=== PATIENT | male | born 2000 | race Caucasian/White ===

== ENCOUNTER 2021-10-12 23:38 | Day surgery (SDC) | payer OTHER ==
[~2021-10-12] VITALS: Ht 177.8 cm; Wt 75.0 kg
[2021-10-13 01:14] LABS: BASO # 0.1 10^3/uL (0.0-0.2); BASO % 0.3 % (0.0-1.0); EOS # 0.5 10^3/uL (0.0-0.5); EOS % 2.8 % (0.0-3.0); HEMATOCRIT 41.9 % (42.0-52.0); HEMOGLOBIN 14.2 g/dl (13.5-17.5); LYMPH # 2.7 10^3/uL (1.5-5.0); LYMPH % 14.8 % (24.0-44.0); MEAN CORPUSCULAR HGB CONC 33.9 g/dl (32.0-36.5); MEAN CORPUSCULAR VOLUME 88.6 fl (80.0-96.0); MONO # 1.1 10^3/uL (0.0-0.8); MONO % 5.9 % (2.0-8.0); NEUTROPHILS % 75.9 % (36.0-66.0); PLATELET COUNT, AUTOMATED 290 10^3/uL (150-450); RED BLOOD COUNT 4.73 10^6/uL (4.30-6.10); WHITE BLOOD COUNT 18.4 10^3/uL (4.0-10.0)
[2021-10-13 01:35] LABS: ERYTHROCYTE SEDIMENTATION RATE 13 mm/hr (0-15)
[2021-10-13 01:39] LABS: ALT/SGPT 27 U/L (12-78); BILIRUBIN,DIRECT < 0.1 MG/DL (0.0-0.2); BILIRUBIN,TOTAL 0.5 MG/DL (0.2-1.0); BLOOD UREA NITROGEN 11 MG/DL (7-18); C REACTIVE PROTEIN QUANTITATIV 1.66 MG/DL (0.00-0.30); CALCIUM LEVEL 8.9 MG/DL (8.5-10.1); CARBON DIOXIDE LEVEL 26 MEQ/L (21-32); CHLORIDE LEVEL 107 MEQ/L (98-107); CREATININE FOR GFR 0.98 MG/DL (0.70-1.30); GLOMERULAR FILTRATION RATE > 60.0 (>60); GLUCOSE, FASTING 81 MG/DL (70-100); LIPASE 57 U/L (73-393); POTASSIUM SERUM 5.7 MEQ/L (3.5-5.1); SODIUM LEVEL 137 MEQ/L (136-145); TOTAL PROTEIN 7.7 GM/DL (6.4-8.2)
[2021-10-13] MEDS ORDERED: ISOVUE-370 76% 100ML VIAL As Ordered ONE (02:03)
[2021-10-13] MEDS ORDERED: NS 1,000 ML IV ONE (02:50)
[2021-10-13] MEDS ORDERED: PIPERACILLIN/TAZOBACTAM SOD 4.5 GM in D5W MINI-BAG PLUS 50 ML IV ONE (02:50)
[2021-10-13] MEDS ORDERED: MORPHINE 4 MG/ML 1ML VIAL/SYRINGE IV ONE (02:50)
[2021-10-13 02:52] LABS: BLOOD UREA NITROGEN 10 MG/DL (7-18); CALCIUM LEVEL 8.9 MG/DL (8.5-10.1); CARBON DIOXIDE LEVEL 30 MEQ/L (21-32); CHLORIDE LEVEL 106 MEQ/L (98-107); CREATININE FOR GFR 0.84 MG/DL (0.70-1.30); GLOMERULAR FILTRATION RATE > 60.0 (>60); GLUCOSE, FASTING 78 MG/DL (70-100); POTASSIUM SERUM 3.6 MEQ/L (3.5-5.1); SODIUM LEVEL 140 MEQ/L (136-145)
[2021-10-13] MEDS ORDERED: LIDOCAINE W/EPINEPHRINE 1% 20ML VIAL As Ordered ONE (05:04)
[2021-10-13] MEDS ORDERED: LIDOCAINE 2% 100MG/5ML SDV (FOR ANES.) As Ordered ONE (05:06)
[2021-10-13] MEDS ORDERED: fentaNYL 250 MCG/5 ML INJECTION As Ordered ONE (05:06)
[2021-10-13] MEDS ORDERED: ROCURONIUM BROMIDE 50 MG/5 ML VIAL As Ordered ONE (05:06)
[2021-10-13] MEDS ORDERED: propofoL 200 MG/20 ML VIAL As Ordered ONE ×2 (05:06→05:07)
[2021-10-13] MEDS ORDERED: MIDAZOLAM INJ 2MG/2ML VIAL (J2250 PER 1MG) As Ordered ONE (05:07)
[2021-10-13] MEDS ORDERED: ONDANSETRON 4MG/2ML VIAL IV PRN ×2 (05:25→06:30)
[2021-10-13] MEDS ORDERED: KETOROLAC 30 MG/ML 1ML VIAL IV PRN (05:25)
[2021-10-13] MEDS ORDERED: NS 1,000 ML IV SCH (05:25)
[2021-10-13] MEDS ORDERED: NORCO, ANEXSIA 5/325MG TABLET (HYDROcodone/ACETAMINOPHEN) PO PRN (05:25)
[2021-10-13] MEDS ORDERED: dexameTHASONE 4 MG/ML 1ML VIAL (J1100 PER 1MG) As Ordered ONE (05:41)
[2021-10-13] MEDS ORDERED: ONDANSETRON 4MG/2ML VIAL As Ordered ONE (05:41)
[2021-10-13] MEDS ORDERED: ACETAMINOPHEN 1000MG 100ML IV BTL (OFIRMEV) (J0131 PER 10MG) As Ordered ONE (05:42)
[2021-10-13] MEDS ORDERED: SUGAMMADEX SODIUM 500 MG/5 ML VIAL (BRIDION) As Ordered ONE (05:50)
[2021-10-13] MEDS ORDERED: KETOROLAC 60MG 2ML VIAL As Ordered ONE (05:50)
[2021-10-13] MEDS ORDERED: METOCLOPRAMIDE INJ 10MG/2ML VIAL (J2765 PER 1) As Ordered ONE (05:50)
[2021-10-13] MEDS ORDERED: ePHEDrine SULFATE 25 MG/5 ML(5MG/ML) SYRINGE As Ordered ONE (06:00)
[2021-10-13] MEDS ORDERED: LR 1,000 ML IV SCH (06:30)
[2021-10-13] MEDS ORDERED: fentaNYL 100 MCG/2 ML INJECTION IV PRN (06:30)
[2021-10-13] MEDS ORDERED: HYDROMORPHONE HCL 0.5 MG/ 0.5 ML SYRINGE (J1170 PER 1) IV PRN (06:30)
[2021-10-13] MEDS ORDERED: METOCLOPRAMIDE INJ 10MG/2ML VIAL (J2765 PER 1) IV PRN (06:30)
[2021-10-13] MEDS ORDERED: HYDR-3715 PO (06:36)
[2021-10-13] MEDS ORDERED: AMOX875T2 PO ×2 (06:36→08:26)
[2021-10-13] MEDS ORDERED: MEPERIDINE INJ 25 MG/ML VIAL (J2175) As Ordered ONE (06:49)
[2021-10-13] MEDS: MEPERIDINE INJ 25 MG/ML VIAL (J2175) IV PRN ×2 (06:57→07:03)
[2021-10-13] MEDS: oxyCODONE 5MG TAB PO PRN ×2 (06:59→08:07)
[2021-10-13] MEDS ORDERED: HYDR-3713 PO (08:26)
[2021-10-13 08:54] VITALS: BP 125/63
[2021-10-13] MEDS ORDERED: SENOKOT S TAB PO SCH (09:00)
[2021-10-13] MEDS ORDERED: PIPERACILLIN/TAZOBACTAM SOD 3.375 GM in D5W MINI-BAG PLUS 50 ML IV SCH (10:00)
== END 2021-10-13 10:43 | disposition home or self-care (01) ==
LOC: M ED 23:38 → M SDC 10-13 04:29
PROVIDERS: ATTEND Surgery
DX: K35.80 Unspecified acute appendicitis (principal); Z77.098 Contact with and (suspected) exposure to other hazardous, chiefly nonmedicinal, chemicals
CPT/HCPCS: 44970; 74177; 80048; 80076; 83690; 85025; 85652; 86140; 87798; 88304; 96361; 96365; 96375; 99284; J0131; J1100; J1885; J2175; J2250; J2270; J2405; J2543; J2765; J3010; Q9967